=== PATIENT | male | born 1990 | race Caucasian/White ===

== ENCOUNTER 2022-07-12 13:27 | Outpatient (CLI) | payer BC, SELFPAY ==
--- NOTE | 2022-07-12 13:15 | DI.RAD_ITS ---
Exam(s) XR KNEE RT 3V AP,LAT,INNA EXAM: XR KNEE RT 3V AP,LAT,INNA CLINICAL HISTORY: RIGHT KNEE F/U. TECHNIQUE: 2D digital imaging was performed of the right knee. Three views obtained. Merchant, AP an d AP tunnel views were obtained. COMPARISON: MR MRI, LOWER EXT. JOINT S/ CONTRA from 05/20/2022 FINDINGS: BONES: No acute fracture is present. No bony destructive lesion is seen. JOINTS: The knee is normally aligned. No joint effusion is seen. SOFT TISSUE: Normal. IMPRESSION: Unremarkable radiographs of the right knee. DATA REPOSITORY: RADIATION DOSE DELIVERED:
== END 2022-07-12 13:28 | disposition home or self-care (01) ==
LOC: DIORS 13:28
PROVIDERS: PCP Physician Assistant Medical; Referring Provider Physician Assistant Medical; Visit Provider Student in an Organized Health Care Education/Training Program
DX: M23.91 Unspecified internal derangement of right knee (principal)
CPT/HCPCS: 73562

== ENCOUNTER 2022-10-06 12:13 | Day surgery (SDC) | payer BC, SELFPAY ==
[2022-10-06] VITALS (10 sets, daily range): BP systolic 91–158; BP diastolic 46–80; PULSE 54–74; RESP 16–24; TEMP 36.4–36.7; O2SAT 93–99; BMI 46.2
--- NOTE | 2022-10-06 13:59 | ANES.PREOP_ITS ---
General Info Date of Service Date Performed: 10/06/22 Height: 6 ft 3 in Weight: 167.829 kg Body Mass Index (BMI): 46.2 Surgical Procedure: Operation Date: 10/06/22 14:40 Proposed Procedure Side Surgeon p Knee Arthroscopy w/any indicated meniscal,chondral and synovial surgery Right Juan M Ulrich MD Meds Allergies and Home Medications Allergies Allergy/AdvReac Type Severity Reaction Status Date / Time coconut Allergy Unknown Verified 10/05/22 10:43 No Known Drug Allergies Allergy Verified 10/05/22 10:43 Home Medication Medication Instructions Recorded amlodipine 2.5 mg tablet 2.5 mg PO DAILY 06/21/22 omeprazole 40 mg capsule,delayed 40 mg PO DAILY 06/21/22 release lisinopril 2.5 mg tablet 2.5 mg PO DAILY 07/12/22 Current Visit Medications: Current Medications Generic Name Dose Route Start Last Admin Trade Name Freq PRN Reason Stop Dose Admin Ringer's Solution 1,000 mls @ 30 mls/hr 10/06/22 06:00 IV 11/04/22 23:59 INFUSION MEGHNA Cefazolin Sodium 3,000 mg/ 100 mls @ 200 mls/hr 10/06/22 06:00 Sodium Chloride IVPB 10/06/22 16:00 PREOP [facility] IV Miscellaneous Supplies 1 each 10/06/22 06:00 Iv Access IV 11/04/22 23:59 DIRECTED MEGHNA Sodium Chloride 0 ml 10/06/22 06:00 Normal Saline Flush 10 Ml Syr IV 11/04/22 23:59 PRN PRN Sodium Chloride 0 ml 10/06/22 06:00 Normal Saline 10 Ml Vial IJ 11/04/22 23:59 DIRECTED PRN Sterile Water 0 ml 10/06/22 06:00 Water,Injection,Sterile 10 Ml Vial IJ 11/04/22 23:59 DIRECTED PRN PFSH Active Problems Active Problems: Problem Status Onset Code Chondromalacia patellae, 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 Tear of medial meniscus of right knee S83.241A Obesity E66.9 Genital herpes simplex A60.00 Essential hypertension I10 Derangement of knee, right M23.91 Acid reflux K21.9 Medical History Medical History Episodic chewing tobacco dependence Surgical History Surgical History S/P knee surgery UNSPECIFIED 09/25/2008 AND 09/25/2006 Tobacco Smoking/Tobacco Use Status: Current-Occasional Tobacco Type: cigars Alcohol Alcohol Intake: current Alcohol intake frequency: a few times a week Substance Use Substance use: Socially Substance use type: other Details: THC oil Vital Signs and Lab Results Vital Signs Most Recent Vital Signs in EMR: Most Recent Vital Signs Temp Pulse Resp BP Pulse Ox 36.4 C L 69 16 158/80 H 98 10/06/22 13:01 10/06/22 13:01 10/06/22 13:01 10/06/22 13:01 10/06/22 13:01 Lab Results Blood Type / Crossmatch: No Data to Display Complete Blood Count: No Data to Display Complete Metabolic Panel: No Data to Display Liver Function Panel: No Data to Display Coagulation Panel: No Data to Display Cardiac Panel: No Data to Display Arterial Blood Gas: No Data to Display Venous Blood Gas: No Data to Display Pancreas Panel: No Data to Display Thyroid Panel: No Data to Display Infectious Disease: No Data to Display Blood Cultures: No Data to Display Toxicology Panel: No Data to Display Anesthesia Assessment and Plan Anesthesia History Personal History: No History of Anesthesia Complications Family History: No Family History of Anesthesia Complications Exercise Tolerance Exercise Tolerance: Metabolic Equivalents>4 Pertinent Negatives Pertinent Negatives: No Symptoms of GERD, No Major Cardiovascular Symptoms or Complaints and No Major Pulmonary Symptoms or Complaints Cardiac & Pulmonary Exam Cardiac Exam: Normal S1/S2 Heart Sounds Pulmonary Exam: Clear Bilateral Breath Sounds Implantable Cardiac Device Does patient have a Pacemaker or an ICD?: No Airway Exam Known Difficult Airway: No Mallampati Class: 1 Mouth Opening: Normal (> 3cm) Thyromental Distance: Greater than 3 cm Facial Hair: Full Moran Neck Range of Motion: Full ROM Neck Circumference: Thick Teeth Condition: Normal Dentition ASA Classification ASA Score: ASA 3 Emergency Case?: No NPO Status NPO Status: NPO Clears >2 hours, Solids >8 hours Anesthesia Plan Resuscitation Status: Full Code Anesthesia Technique: General Anesthesia Airway Planned: LMA Monitors Used: Standard Monitors
[2022-10-06] MEDS: ceFAZolin 3,000 MG in Normal Saline 100 ML 200 MG IVPB (14:28)
[2022-10-06] MEDS: Lactated Ringers 1,000 ML 30 ML IV (14:29)
[2022-10-06] MEDS: Bupivacaine 0.5% Pres-Free W/EPI 30 ML VIAL (15:06)
[2022-10-06] MEDS: MORPHine 4 MG/ML SYR (15:06)
[2022-10-06] MEDS: EPINEPHrine 30 MG/30 ML VIAL (15:31)
--- NOTE | 2022-10-06 15:50 | W.PM.DSUDISC ---
Date of service: 10/06/22 Time of Service: 16:00 Discharge Plan Disposition Patient Disposition: Home Discharge Details Attending Provider: Juan M Ulrich Primary Care Provider: Shalonda Kenney Home Meds and New Rx's Prescriptions: New naproxen 250 mg tablet 250 - 500 mg PO BID PRNQty: 40 0RF Rx Instructions: take with a meal aspirin 81 mg tablet,delayed release (DR/EC) 81 mg PO DAILY 14 Days Qty: 14 0RF oxycodone 5 mg tablet 5 - 10 mg PO Q4H MDD 30 mg PRN (Reason: moderate to severe pain) Qty: 18 0RF Continued lisinopril 2.5 mg tablet 2.5 mg PO DAILY amlodipine 2.5 mg tablet 2.5 mg PO DAILY omeprazole 40 mg capsule,delayed release(DR/EC) 40 mg PO DAILY Discharge Instructions Additional Instructions: Surgery: Right knee arthroscopy with partial medial & lateral meniscectomy, removal of loose bodies, and patellar chondroplasty Activity: Weightbearing as tolerated. Advance range of motion as comfort allows. No knee brace or crutches needed as soon as comfortable. Recommend avoiding sports, pivoting, and squatting for 6-8 weeks. A physical therapy prescription will be provided separately in the office at follow-up if needed. Prescriptions: Aspirin 81 mg take 1 daily to prevent a blood clot for 14 days. Naproxen 250 mg take 1-2 every 12 hours with a meal as needed for moderate pain Oxycodone 5 mg take 1-2 every 4-6 hours as needed for severe pain You may use moul-ihv-fwbipou Tylenol (acetaminophen) as needed for mild pain. These pain medications may be taken all at once or in different combinations as needed. Also, recommend Colace (docusate) as a stool softener as surgery and pain medicine cause constipation. You may try ennf-pwp-bgnsvih diphenhydramine (Benadryl) 25-50 mg nightly as a sleep aid Dressings: Leave dressing in place for 3 days. May then remove and leave open to air or cover incisions with Band-Aids. May shower after 5 days. Follow-up: 10-[address] Ulrich You may take off the leg compression stockings this evening at home. You may also leave them on a few days longer if you have a history of leg swelling or edema. Let us know right away if you develop any redness, drainage, fevers, chest pain, or trouble breathing. Do not drink alcohol or drive for at least 24 hours after anesthesia. Please call the office during business hours with any questions or concerns. Stand Alone Forms: Anesthesia Discharge Inst., Adama Kennedy ([facility]) Discharge Orders Discharge Orders: Discharge Order (Routine); Ordered 10/06/22 Ordered By: Juan M Ulrich DS: Diagnosis Discharge Diagnosis (1) Chondromalacia patellae, right knee: Status: Acute (2) Tear of medial meniscus of right knee: Status: Acute
--- NOTE | 2022-10-06 16:02 | W.PM.OP ---
Date of service: 10/06/22 Time of Service: 14:30 Operative Note Operative Note DATE OF PROCEDURE: 10/06/22 PRE-OP DIAGNOSIS: Right knee 1. Medial meniscus tear 2. Chondromalacia patella POST-OP DIAGNOSIS: same Right knee 1. Medial meniscus tear 2. Chondromalacia patella 3. Lateral meniscus tear 4. Loose bodies: Single large meniscal fragment, moderately sized additional meniscal fragment, and multiple small meniscal fragments PROCEDURE: Right knee 1. Partial medial & lateral meniscectomy, CPT #51574 2. Loose body removal, CPT #46784: About 3cm x 6mm meniscal loose body in posterior medial compartment removed from separate posterior medial and large portal. Smaller 1.5 cm x 5 mm meniscal loose body and medial gutter removed through usual anteromedial portal. 3. Chondroplasty, CPT #04187: Undersurface patellar SURGEON: Juan M Ulrich DEVELOPMENTAL PSYCHOLOGIST: Brittani Terrell ANESTHESIA TYPE: Local By Surgeon and General LMA/ETT Refer to Anesthesia Record ESTIMATED BLOOD LOSS: 5 PATHOLOGY: none sent TOURNIQUET TIME: 0 Patient was transported to: PACU Patient's condition: stable Indications: Please see complete medical record for details. Findings: Exam under anesthesia: Difficult due to size. Stable. Full range of motion. Arthroscopic findings: Moderate patellofemoral synovitis. Moderate central grade 2?3 patellar chondromalacia with some fissuring and lateral free edge flaps. Moderate size meniscal loose body to medial gutter. Large meniscal loose body in the posterior medial compartment. Mild medial compartment chondromalacia. Deficient posterior horn medial meniscus with apparent completed radial tear of the superior leaflet near the root. Remainder of the root and posterior horn relatively intact. At the junction of the meniscal body and posterior horn there was an obliquely progressing incomplete tear still present. Intact ACL PCL. Intact lateral compartment. Largely intact lateral meniscus with partial tearing and fraying at the superior posterior horn meniscus into and around the root with otherwise stable root. Procedure Description: In the operating room, general anesthesia was induced. The patient was positioned supine on the operating room table. All bony prominences were well-padded. Preoperative antibiotics were administered. The knee was prepped and draped in the usual sterile fashion. The correct patient, procedure, and side of the procedure were all verified prior to incision. Exam under anesthesia was performed. 10 cc of 0.5% bupivacaine containing epinephrine was infiltrated about the planned anteromedial and anterolateral knee arthroscopy portals. The portals were established and a complete diagnostic arthroscopy was performed with relevant findings detailed above. The mechanical shaver was used to remove excessive inflamed synovium from the anteromedial, anterolateral, patellofemoral, intercondylar areas. The medial gutter loose body was grasped with a small Clarissa and removed out the usual anteromedial portal. The arthroscope was driven through the notch into the posterior medial compartment where a remarkable large meniscal fragment was present. Various indirect techniques of suction and shaving were attempted to deliver this fragment into the anterior knee, which were unsuccessful. Using spinal needle localization, a posterior medial portal was established and this large meniscal fragment securely grasped, the portal appropriately enlarged to accommodate removal, and it was removed in entirety. Another 5 cc of 0.5% bupivacaine containing epinephrine was infiltrated about this posterior portal. These meniscal fragments were placed into a specimen cup for the patient. The remainder of the medial meniscus was carefully inspected. Using a combination of hand instruments including meniscal biters and a power shaver and working through the anteromedial and anterolateral portals the meniscus was debrided of all residual torn and frayed tissue to a stable margin. Care was taken to preserve as much meniscus tissue was possible. This included preservation at the anterior and central meniscal body of the fairly incomplete oblique vertically oriented tear in the red-white zone that did not probe through more than the superficial meniscal layers and was possibly partially healed. The meniscal remnant was probed and found to have a stable margin, stable root, and no other tears The mechanical shaver was then used in the fxggza-zv-nzal position to debride the posterior horn lateral meniscus superior fraying and tearing about the root. The knee was then brought slowly into extension and the patellofemoral compartment inspected. The undersurface of the patella had some irregular fraying that was smoothed mildly with a shaver. The lateral aspect of the patellar lesion had some free edge cartilage flaps that appeared unstable and impending so they were resected to a stable cartilage margin. Care was taken preserve as much cartilage possible. Multifocal mechanical shaver then driven around the compartments of the knee to ensure complete removal of smaller meniscal loose bodies. Under direct arthroscopic visualization an 18-gauge needle was passed into the knee from superolateral into the suprapatellar pouch. The knee was copiously irrigated with arthroscopic fluid until there was a clear effluent before being drained of all fluid. The anteromedial and anterolateral portals were closed in 3-0 Monocryl in a buried interrupted fashion. 15 cc of 0.25% bupivacaine with epinephrine containing 4 mg of morphine was infiltrated into the knee through the previously placed needle. Mastisol, Steri-Strips, and 4 x 4 gauze were applied over the incisions followed by sterile soft roll. The knee was then wrapped gently with an NELLA comressive bandage. The patient awoke from anesthesia without complication and was transferred to the recovery room in a stable condition.
--- NOTE | 2022-10-06 16:24 | W.ANESPOSTOP ---
Postoperative Evaluation Date, Time and Location Date Performed: 10/06/22 Time Performed: 16:24 Patient Location: PACU Vital Signs Most Recent Imported Vital Signs: Most Recent Vital Signs Temp Pulse Resp BP Pulse Ox 36.5 C 74 20 130/74 97 10/06/22 16:15 10/06/22 16:15 10/06/22 16:15 10/06/22 16:15 10/06/22 16:15 Pain Score Most Recent Pain Score: Most Recent Pain Score Pain Level 0 10/06/22 16:15 Assessment Mental Status: Awake (Alert & Oriented to Patient Baseline) Airway and Respiratory Function: Patent airway with normal (patient baseline) respiratory exam Cardiovascular Function: Hemodynamically Stable Hydration Status: Adequately Hydrated Nausea & Vomiting: No Nausea or Vomiting Pain: Pt. Denies Any Pain Peripheral Nerve Block: Patient did not receive a nerve block
[2022-10-06] MEDS: oxyCODONE 5 MG TAB PO (17:01)
== END 2022-10-06 17:18 | disposition home or self-care (01) ==
PROVIDERS: PCP Physician Assistant Medical; Visit Provider Student in an Organized Health Care Education/Training Program
PROC: (CPT 29870; principal; 2022-10-06 14:30)
DX: M22.41 Chondromalacia patellae, right knee (principal); M23.41 Loose body in knee, right knee; M23.251 Derangement of posterior horn of lateral meniscus due to old tear or injury, right knee; M23.221 Derangement of posterior horn of medial meniscus due to old tear or injury, right knee
CPT/HCPCS: 29880; J0690; J1100; J1885; J2250; J2270; J2405; J2704

== ENCOUNTER 2024-12-31 11:29 | Outpatient (CLI) | payer BC, SELFPAY ==
--- NOTE | 2024-12-31 10:15 | DI.RAD_ITS ---
Exam(s) XR SHOULDER RT COMPLETE 2+V EXAM: XR SHOULDER RT COMPLETE 2+V CLINICAL HISTORY: RIGHT SHOULDER PAIN. TECHNIQUE: 2D digital imaging was performed. Five views. COMPARISON: No exams were available for comparison FINDINGS: BONES: No acute fracture is present. No bony destructive lesion is seen. JOINTS: No dislocation present. AC joint shows no significant spurring. Glenohumeral joint space is maintained. SOFT TISSUE: Normal. IMPRESSION: Unremarkable radiographs of the right shoulder. DATA REPOSITORY: RADIATION DOSE DELIVERED:
== END 2024-12-31 11:30 | disposition home or self-care (01) ==
LOC: DIORS 11:30
PROVIDERS: PCP Physician Assistant Medical; Visit Provider Student in an Organized Health Care Education/Training Program
DX: M25.511 Pain in right shoulder (principal)
CPT/HCPCS: 73030

== ENCOUNTER 2025-02-05 10:14 | Outpatient (CLI) | payer BC, SELFPAY ==
--- NOTE | 2025-02-05 10:15 | DI.RAD_ITS ---
Exam(s) XR CHEST 2V PA LATERAL EXAM: XR CHEST 2V PA LATERAL CLINICAL HISTORY: Cough, R05.9 TECHNIQUE: 2D digital imaging was performed of the chest. Two images were obtained. PA and lateral views were obtained. COMPARISON: No exams were available for comparison FINDINGS: MEDIASTINUM: Normal. HEART: Normal. PULMONARY VASCULATURE: Normal. LUNGS: Incidental note is made of an azygos lobe which is a normal variant. No focal consolidating i nfiltrates are seen. PLEURAL SPACE: No pleural effusion or pneumothorax. BONE:Within normal limits for the patient's age. OTHER FINDINGS:Normal. IMPRESSION: No focal consolidating infiltrates are present. Follow-up as clinically appropriate. DATA REPOSITORY: RADIATION DOSE DELIVERED:
== END 2025-02-05 10:34 ==
LOC: DI 10:15
PROVIDERS: PCP Physician Assistant Medical; Visit Provider Physician Assistant Medical
DX: R05.9 Cough, unspecified (principal)
CPT/HCPCS: 71046

== ENCOUNTER 2025-06-27 10:22 | Day surgery (SDC) | payer BC, SELFPAY ==
[2025-06-27] VITALS (38 sets, daily range): BP systolic 116–159; BP diastolic 48–84; PULSE 43–78; RESP 12–28; TEMP 36.2–37.2; O2SAT 96–100; BMI 35.8
--- NOTE | 2025-06-27 07:08 | W.PM.DSUDISC ---
Date of service: 06/27/25 Discharge Plan Disposition Patient Disposition: Home Condition: Stable Discharge Details Attending Provider: Juan M Ulrich Primary Care Provider: Shalonda Kenney Home Meds and New Rx's Prescriptions: New naproxen 250 mg tablet 250 - 500 mg PO BID PRN (Reason: moderate pain and swelling) Qty: 30 0RF Rx Instructions: take with a meal oxycodone 5 mg tablet 5 - 10 mg PO .q4-6h MDD 30 mg PRN (Reason: severe pain) Qty: 9 0RF Continued lisinopril 20 mg tablet 20 mg PO DAILY omeprazole 40 mg capsule,delayed release(DR/EC) 40 mg PO .qod Discharge Instructions Additional Instructions: Surgery: Right shoulder arthroscopy with debridement of degenerative glenoid chondromalacia & labral tearing and open biceps tenodesis 06/27/25 Activity: You should gradually increase range of motion motion and use of your shoulder. You may use your shoulder for all regular activities while protecting biceps repair. Avoid any weighted elbow flexion or resisted supination for 6-8 weeks. No heavy lifting, reaching overhead, or lifting away from body for approximately 2-3 months. You may use the sling whenever you are out of the house for a few weeks. At home it is best to remove the sling and rest the arm on a pillow at your side or support the operative side with your other hand. A physical therapy prescription will be sent electronically to start in about 3 weeks. Prescriptions: Naproxen 250 mg take 1-2 every 12 hours with a meal as needed for moderate pain Oxycodone 5 mg take 1-2 every 4-6 hours as needed for severe pain You may use qzwg-yqz-cdbhzfp Tylenol (acetaminophen) as needed for mild pain. These pain medications may be taken all at once or in different combinations as needed. Also, recommend Colace (docusate) as a stool softener as surgery and pain medicine cause constipation. You may try tgim-zib-stvxojt diphenhydramine (Benadryl) 25-50 mg nightly as a sleep aid Dressings: Remove shoulder bandage after 3 days. Leave the sticky Steri-Strips in place until they fall off or remove them after you shower. Cover the incisions with Band-Aids or leave them open to air. The biceps bandage (inside upper arm) is glued on separately. You may leave this one on a few days longer if it is difficult to remove. There is also glue underneath this bandage that can be left in place until it peels off. You may shower after 5 days. Follow-up: 10-[address] Ulrich You may take off the leg compression stockings this evening at home. You may also leave them on a few days longer if you have a history of leg swelling or edema. Let us know right away if you develop any redness, drainage, fevers, chest pain, or trouble breathing. Do not drink alcohol or drive for at least 24 hours after anesthesia. Please call the office during business hours with any questions or concerns. Stand Alone Forms: Anesthesia Discharge Inst., Tisha.Nerve Block Instructions, Adama Kennedy ([facility]) Referrals: Juan M Ulrich MD [ [facility] STAFF PHYSICIAN, Orthopaedic Surgical] - 07/09/25 10:15 am Discharge Orders Discharge Orders: Discharge Order (Routine); Ordered 06/27/25 Ordered By: Brittani Terrell DS: Diagnosis Discharge Diagnosis (1) Tendonitis of long head of biceps brachii of right shoulder: Status: Acute (2) Labral tear of shoulder: Status: Deleted (3) Chondromalacia, right shoulder: Status: Acute (4) Degenerative tear of glenoid labrum of right shoulder: Status: Acute
--- NOTE | 2025-06-27 07:14 | ROE_ITS ---
Operative Note Operative Note PRE-OP DIAGNOSIS: Right: 1. Posterior labral tear 2. LHB tendinopathy POST-OP DIAGNOSIS: same Right: 1. Posterior -inferior labral tearing 2. Biceps anchor SLAP tear 3. [place] complex 4. Moderately significant inferior glenoid chondromalacia PROCEDURE: Right: 1. Extensive debridement, CPT# 25122. This involved using arthroscopic hand instruments, power instruments, and radiofrequency instruments to release the long head of the biceps tendon and debride areas of anterior inferior, inferior, and posterior inferior labral tearing, SLAP tear, partial articular supraspinatus tendon tearing, and chondromalacia about the inferior glenoid working within the glenohumeral joint anteriorly, superiorly and posteriorly. 2. Open biceps tenodesis, CPT# 45214. This involved reattaching the long head of the biceps tendon to the proximal humerus in the sub-pectoral area of the bicipital groove at the correct tension. The vector control assistant was medically required in order to help assist in techniques above, which require positioning the arm, holding the arthroscope, and manipulating multiple instruments and sutures at the same time. This cannot be done without the help of an experienced vector control assistant. SURGEON: Juan M Ulrich TELESALES TEAM LEADER: Brittani Terrell ANESTHESIA TYPE: Local By Surgeon, General LMA/ETT and Primary Nerve Block Refer to Anesthesia Record ESTIMATED BLOOD LOSS: 5 PATHOLOGY: none sent COMPLICATIONS: None Patient was transported to: PACU Patient's condition: stable Implants: Arthrex: Unicortical Proximal Biceps Tenodesis Button Indications: The patient was diagnosed with the above conditions and appropriately indicated for surgical intervention. Please see complete medical record for details. Findings: Exam under anesthesia: Full range of motion, no instability, posterior glenoid click with Lisseth maneuver. Glenohumeral joint: Healthy intact humeral cartilage and majority of glenoid cartilage except for the most inferior about 15% of the glenoid that had fairly high grade chondromalacia and irregular loose cartilage edges flaps and inferior anterior through posterior inferior degenerative labral tear fraying. [place] complex into unstable biceps anchor SLAP tear. Otherwise healthy intact intra- articular biceps. Mild small area articular sided supraspinatus tearing. Intact subscapularis infraspinatus. Subacromial space: Intact rotator cuff, no significant bursitis Procedure Description: In the operating room, general anesthesia was induced. Bilateral shoulders were examined. The patient was positioned in the beachchair position. All bony prominences were well-padded. Preoperative antibiotics were administered. The shoulder was prepped and draped in the usual sterile fashion. The correct patient, procedure, and side of the procedure were all verified prior to incision. Starting through the posterior portal a standard complete diagnostic arthroscopy was performed of the glenohumeral joint including inspection of the long head of the biceps, anterior and superior labrum, subscapularis tendon, supraspinatus and infraspinatus tendons, and axillary recess. The glenoid and humeral head cartilage as well as the posterior labrum were inspected from an anterior viewing portal. Significant findings and interventions noted above. The mild supraspinatus articular tear was readily debrided with a shaver as well as the anterior to superior labral tearing and fraying at the [place] complex with the radiofrequency ablator and shaver. The inferior glenoid chondromalacia was approached from anterior and posterior with the ablator and the shaver to remove and contour loose edges flaps of cartilage to a smooth margin and into the inferior most labrum debriding it of some fraying. The biceps tendon was released from the superior labrum using arthroscopic scissors. It must have been under my attention as it rapidly withdrew to the superior aspect of the bicipital groove before direct arm pressure. The shoulder was drained of arthroscopic fluid. Both portal sites were copiously irrigated. Bupivacaine with epinephrine was infiltrated about a medium-sized longitudinal incision at the inferior margin of the pectoralis major localized over the long head of the biceps tendon. Blunt and sharp dissection were used to expose the tendon in the bicipital groove. The tendon was brought out of the wound and kept off the skin on top of a blue towel. The correct location for sub-pectoral fixation was localized, prepped with a rasp, and then drilled with a 3.2 mm drill pin in a unicortical fashion. Using a fiber loop suture the tendon was prepped from the musculotendinous junction a few centimeters proximal. The excess tendon was amputated. The free suture ends were then passed through the unicortical button implant. The drill pin was removed and the implant was placed into the humeral intramedullary canal. The button was flipped and the sutures were tensioned bringing the tendon down to bone. Tension and fixation were then tested and found to be appropriate. The suture tails were brought on either side of the tendon and then tied compressing tendon to bone. The wound was copiously irrigated with normal saline. Subcutaneous tissue was closed using 3-0 Monocryl in a buried interrupted fashion. Skin was closed using 3-0 Monocryl in a buried subcuticular running fashion. Skin glue was applied over the incision. Mastisol was applied about the incision. The incision was covered with Telfa, gauze, and covered with a Tegaderm dressing. The portals were closed using 3-0 Monocryl in a buried fashion and then covered with Mastisol, Steri-Strips, Xeroform, dry gauze, and ABDs. The dressings were covered and secured with Medipore tape. The operative extremity was placed into a sling for immobilization. The patient awoke from anesthesia without complication and was transferred to the recovery room in a stable condition. Date of Procedure: 06/27/25
[2025-06-27] MEDS: Lactated Ringers 1,000 ML 30 ML IV ×2 (11:40→15:16)
--- NOTE | 2025-06-27 11:47 | W.ANESPRE ---
General Info Date of Service Date Performed: 06/27/25 Height: 6 ft 3 in Weight: 129.9 kg Body Mass Index (BMI): 35.8 Surgical Procedure: Operation Date: 06/27/25 12:10 Proposed Procedure Side Surgeon p Shoulder Arthroscopy w/Extensive Debridement, Open Biceps Tenodesis, Subacromial Decompression and Labral Repair Right Juan M Ulrich MD Meds Allergies and Home Medications Allergies Allergy/AdvReac Type Severity Reaction Status Date / Time coconut Allergy Unknown Swelling/Ed Verified 06/27/25 10:40 king No Known Drug Allergies Allergy Other (See Verified 06/27/25 10:40 Comment) Home Medication ?Medication ?Instructions ?Recorded lisinopril 20 mg tablet 20 mg PO DAILY 12/02/24 omeprazole 40 mg capsule,delayed 40 mg PO .qod 04/01/25 release Current Visit Medications: Current Medications Generic Name Dose Route Start Last Admin Trade Name Freq PRN Reason Stop Dose Admin Ringer's Solution 1,000 mls @ 30 mls/hr 06/27/25 06:00 IV 06/27/25 23:59 INFUSION MEGHNA Cefazolin Sodium 3,000 mg/ 100 mls @ 200 mls/hr 06/27/25 06:00 Sodium Chloride IV 06/27/25 23:59 PREOP MEGHNA Tranexamic Acid/Sodium Chloride 1,000 mg in 100 mls @ 600 mls/hr 06/27/25 06:00 IVPB 06/27/25 23:59 PREOP MEGHNA IV Miscellaneous Supplies 1 each 06/27/25 06:00 Iv Access IV 06/27/25 23:59 DIRECTED MEGHNA Oxycodone HCl 0 mg 06/27/25 07:08 Oxycodone 5 Mg Tab PO 07/27/25 07:07 Q3H PRN PRN Pain Sodium Chloride 0 ml 06/27/25 06:00 Normal Saline Flush 10 Ml Syr IV 06/27/25 23:59 PRN PRN Sodium Chloride 0 ml 06/27/25 06:00 Normal Saline 10 Ml Vial IJ 06/27/25 23:59 DIRECTED PRN Sterile Water 0 ml 06/27/25 06:00 Water,Injection,Sterile 10 Ml Vial IJ 06/27/25 23:59 DIRECTED PRN PFSH Active Problems Active Problems: Problem Status Onset Code Tendonitis of long head of biceps brachii of right shoulder Acute M75.21 Labral tear of shoulder Acute S43.439A Status post arthroscopy of right knee Acute 10/06/22 Z98.890 Chondromalacia patellae, right knee Acute M22.41 Tear of medial meniscus of right knee Acute S83.241A Obesity Chronic E66.9 Genital herpes simplex Acute A60.00 Essential hypertension Acute I10 Derangement of knee, right Acute M23.91 Acid reflux Chronic K21.9 Medical History Medical History Episodic chewing tobacco dependence Surgical History Surgical History History of placement of ear tubes as a child Hx of umbilical hernia repair baby S/P knee surgery UNSPECIFIED 09/25/2008 AND 09/25/2006 Tobacco Smoking/Tobacco Use Status: Current-Occasional Tobacco Type: cigars Passive smoking exposure: No Alcohol Alcohol Intake: current Alcohol intake frequency: a few times a week Substance Use Substance use: Socially Substance use type: other Details: THC oil t-7. alcohol: t-6, three drinks. Tobacco: nicotine pouch t-1, 2100 Vital Signs and Lab Results Vital Signs Most Recent Vital Signs in EMR: Most Recent Vital Signs Temp Pulse Resp BP Pulse Ox 36.9 C 58 L 16 130/62 100 06/27/25 10:49 06/27/25 10:49 06/27/25 10:49 06/27/25 10:49 06/27/25 10:49 Anesthesia Assessment and Plan Anesthesia History Personal History: No History of Anesthesia Complications Family History: No Family History of Anesthesia Complications Exercise Tolerance Exercise Tolerance: Metabolic Equivalents>4 Pertinent Negatives Pertinent Negatives: No Symptoms of GERD, No Major Cardiovascular Symptoms or Complaints, No Major Pulmonary Symptoms or Complaints and No History of CVA/TIA Cardiac & Pulmonary Exam Cardiac Exam: Normal S1/S2 Heart Sounds Pulmonary Exam: Clear Bilateral Breath Sounds Implantable Cardiac Device Does patient have a Pacemaker or an ICD?: No Airway Exam Known Difficult Airway: No Mallampati Class: 1 Mouth Opening: Normal (> 3cm) Thyromental Distance: Greater than 3 cm Facial Hair: Full [place] Neck Range of Motion: Full ROM Neck Circumference: Thick Teeth Condition: Normal Dentition ASA Classification ASA Score: ASA 2 Emergency Case?: No NPO Status NPO Status: NPO Clears >2 hours, Solids >8 hours Anesthesia Plan Resuscitation Status: Full Code Anesthesia Technique: General Anesthesia Airway Planned: Endotracheal Tube Pain Management: Surgeon and patient request nerve block Monitors Used: Standard Monitors and SedLine
[2025-06-27] MEDS: ceFAZolin 3,000 MG in Normal Saline 100 ML 200 MG IV (12:50)
[2025-06-27] MEDS: TRANEXAMIC ACID/SOD. CHL. 1,000 MG/100 ML BAG 600 MG IVPB (13:00)
--- NOTE | 2025-06-27 13:28 | W.ANESNERVE ---
Nerve Block Single Injection Procedure Date and Time Date Performed: 06/27/25 Procedure Start: 12:30 Location Where Procedure Performed Procedure Location: Day Surgery Unit Reason Performed: Postoperative Analgesia Requesting Provider: Juan M Ulrich Timeout Performed Timeout Performed: Yes Monitoring Used Blood Pressure, SpO2 and See EMR for corresponding vital signs Sterility Sterility: Hand Hygiene, Surgical Cap, Surgical Mask, Sterile Gloves, Sterile Drape/Sheet and Chlorhexidine Sedation Given During Procedure Sedation Given (Indicate Dose Given): Versed IV Dose:: 2mg Patient Mental Status Patient Mental Status: Awake Nerve Block 1st Nerve Block: Laterality: Right Block Type: Interscalene Ultrasound Image Saved?: Yes Needle / Catheter Used: 80mm SonoPlex II Local Anesthetic Bolus (Indicate Dose Given): Lidocaine used for local infiltration of skin, Bupivacaine 0.5% Dose:: 10 ml and Exparel Dose:: 10 ml Additives (Indicate Dose Given): None Ultrasound: Sterile probe cover and gel used Nerve Stimulator: Supplement to Ultrasound use and No twitch or parasthesia noted < 0.5 mA Paresthesia: None Procedure Tolerated: No Complications and Patient tolerated well Procedure Outcome: Successful Performed By: Jillian Chisholm Supervised By: Kylee Nguyen
[2025-06-27] MEDS: Bupivacaine 0.25% Pres-Free W/EPI 30 ML VIAL (13:34)
[2025-06-27] MEDS: EPINEPHrine 10 MG/10 ML ML ×2 (14:30)
--- NOTE | 2025-06-27 15:17 | W.ANESPOSTOP ---
Postoperative Evaluation Date, Time and Location Date Performed: 06/27/25 Time Performed: 15:17 Patient Location: PACU Vital Signs Most Recent Imported Vital Signs: Most Recent Vital Signs Temp Pulse Resp BP Pulse Ox 36.5 C 45 L 16 116/54 L 98 06/27/25 15:01 06/27/25 15:01 06/27/25 15:01 06/27/25 15:01 06/27/25 15:01 Pain Score Most Recent Pain Score: Most Recent Pain Score Pain Level 0 06/27/25 12:26 Assessment Mental Status: Awake (Alert & Oriented to Patient Baseline) Airway and Respiratory Function: Patent airway with normal (patient baseline) respiratory exam Cardiovascular Function: Hemodynamically Stable Hydration Status: Adequately Hydrated Nausea & Vomiting: No Nausea or Vomiting Pain: Pt. Denies Any Pain Peripheral Nerve Block: Regional nerve block not resolved at time of post operative discharge
== END 2025-06-27 16:47 | disposition home or self-care (01) ==
LOC: SUR 10:22
PROVIDERS: PCP Physician Assistant Medical; Visit Provider Student in an Organized Health Care Education/Training Program
PROC: (CPT 29805; principal; 2025-06-27 12:00)
DX: S43.431A Superior glenoid labrum lesion of right shoulder, initial encounter (principal); M75.21 Bicipital tendinitis, right shoulder; M94.211 Chondromalacia, right shoulder; M24.111 Other articular cartilage disorders, right shoulder; X58.XXXA Exposure to other specified factors, initial encounter; G89.18 Other acute postprocedural pain
CPT/HCPCS: 23430; 29823; 64415; J0131; J0665; J0666; J0690; J1100; J1885; J2003; J2250; J2371; J2405; J2704